=== PATIENT | female | born 1960 | race African-American/Black ===

== ENCOUNTER 2017-03-13 12:31 | Outpatient (CLI) | payer OTHER ==
--- NOTE | 2017-03-13 13:29 | RAD ---
RIGHT HIP TWO VIEWS: History: Right hip pain. FINDINGS: There are some mild arthritic changes of the hip joint without significant joint space narrowing. So me minimal acetabular spurring. There are no signs of fracture or other findings. IMPRESSION: Minimal arthritic changes of the hip. POS: OFF
== END 2017-03-13 12:32 | disposition home or self-care (01) ==
LOC: TBSIIMAG 12:31
PROVIDERS: ATTEND Neurological Surgery
DX: M25.551 Pain in right hip (principal); M16.11 Unilateral primary osteoarthritis, right hip

== ENCOUNTER 2017-08-13 12:21 | Outpatient (CLI) | payer OTHER | END 2017-08-13 12:22 | disposition home or self-care (01) | LOC: BICMRI 12:21 | PROVIDERS: ATTEND Orthopaedic Surgery | DX: M25.551 Pain in right hip (principal); M16.11 Unilateral primary osteoarthritis, right hip; M25.461 Effusion, right knee ==

== ENCOUNTER 2018-10-30 10:40 | Outpatient (CLI) | payer OTHER ==
[2018-10-30] MEDS ORDERED: Gadobenate Dimeglumine 529 MG/1 ML (20ML VIAL) ONE (10:51)
--- NOTE | 2018-10-30 13:56 | MRI ---
MRI OF LUMBAR SPINE WITH AND WITHOUT CONTRAST: 10/30/18 Multiplanar and multisequential imaging lumbar spine obtained. INDICATIONS: Lumbar radiculopathy. Low back pain. History of prior lumbar surgery. COMPARISON: Comparison made to lumbar MRI 11/22/14. That exam revealed disc extrusion centrally and to the right a t L5-S1 and disc protrusion centrally and to the left at L4-5. FINDINGS: Lumbar vertebrae maintain height and alignment. Loss of disc space at L5-S1. Mild disc bulge at L1-2 and L2-3. Posterior facet hypertrophy. However, no central canal or foraminal stenosis at these levels. At L3-4, mild diffuse disc bulge. Facet and ligamentous hypertrophy is prominent. These changes resul t in mild to moderate central canal stenosis. At L4-5, there continues to be a broad based bulge with asymmetric protrusion centrally and paracentr ally to the left. This compresses the thecal sac. There is prominent facet and ligamentous hypertrop hy. These changes result in severe central canal stenosis which has progressed when compared to prio r exam. At L5-S1, postop laminectomy changes are seen posteriorly on the left. Diffuse disc bulge. Recurrent or residual protrusion centrally and slightly to the left flattens the anterior thecal sac and displ aces the traversing left S1 nerve root. Left foraminal encroachment due to the diffuse disc bulging h ypertrophic change. Mild right foraminal narrowing due to disc osteophyte complex projecting into the foramina on both sides. IMPRESSION: 1. Mild to moderate central canal stenosis at L3-4. 2. Moderate to severe central canal stenosis at L4-5. 3. Mild to moderate central canal stenosis at L5-S1. See description of each level above. POS: JOSH
== END 2018-10-30 10:41 | disposition home or self-care (01) ==
LOC: BICMRI 10:40
PROVIDERS: ATTEND Neurological Surgery
DX: M54.5 Low back pain (principal); M54.16 Radiculopathy, lumbar region; M48.061 Spinal stenosis, lumbar region without neurogenic claudication; M48.062 Spinal stenosis, lumbar region with neurogenic claudication
CPT/HCPCS: 72158; 82565; A9577

== ENCOUNTER 2019-10-22 07:01 | Outpatient (CLI) | payer OTHER ==
[2019-10-22 13:31] LABS: Hemoglobin 15.4 g/dL (12.0-16.0); Mean Corpuscular HGB CONC 31.6 g/dL (32.0-36.0); Mean Corpuscular Hemoglobin 27.6 pg (27.0-31.0); Mean Corpuscular Volume 87.2 fL (78.0-98.0); Mean Platelet Volume 9.4 fL (7.4-10.4); Platelet Count 246 thou/uL (130-400); RBC Distribution Width 16.3 % (11.5-14.5); Red Blood Cell (RBC) Count 5.57 mill/uL (4.20-5.40); White Blood Cell (WBC) Count 8.5 thou/uL (4.8-10.8)
[2019-10-22 14:00] LABS: Anion Gap 15 mmol/L (10-20); BUN (Urea Nitrogen) 16 mg/dL (9.8-20.1); Calc. Creatinine Clearance 0 mL/min (70-130); Calcium 9.8 mg/dL (7.8-10.44); Carbon Dioxide 23 mmol/L (23-31); Chloride 104 mmol/L (98-107); Estimated GFR-MDRD 46; Glucose 117 mg/dL (80-115); Potassium 3.4 mmol/L (3.5-5.1); Sodium 139 mmol/L (136-145)
[2019-10-23 19:51] LABS: SARS-CoV-2 MS2 Positive; SARS-CoV-2 N Gene Negative; SARS-CoV-2 S Gene Negative; SARS-CoV-2 orf1ab Negative
--- NOTE | 2019-10-29 23:27 | EKG ---
Test Reason : Blood Pressure : / mmHG Vent. Rate : 082 BPM Atrial Rate : 082 BPM P-R Int : 144 ms QRS Dur : 120 ms QT Int : 434 ms P-R-T Axes : 068 026 -05 degrees QTc Int : 507 ms Normal sinus rhythm Possible Left atrial enlargement Left ventricular hypertrophy with QRS widening and repolarization abnormality Abnormal ECG When compared with ECG of 28-DEC-2014 08:16, No significant change was found Confirmed by Christopher FLYNN ([id number]) on 10/29/2019 11:27:23 PM Referred By: GLENDY Confirmed By:Christopher FLYNN
== END 2019-10-22 07:02 | disposition home or self-care (01) ==
LOC: LABBT 07:01
PROVIDERS: ATTEND Neurological Surgery
DX: Z01.818 Encounter for other preprocedural examination (principal); Z11.59 Encounter for screening for other viral diseases; M54.16 Radiculopathy, lumbar region
CPT/HCPCS: 80048; 85027; 87635; 93005; 93010; U0003

== ENCOUNTER 2019-10-27 05:42 | Day surgery (SDC) | payer OTHER ==
[2019-10-22 12:23] VITALS: BMI 28.5
--- NOTE | 2019-10-26 12:21 | HP ---
HISTORY OF PRESENT ILLNESS: Ms. Masterson is a very pleasant 59-year-old prior lumbar decompression with re-evaluation of her current pain as well as an MRI which confirmed spinal stenosis. We advocated for surgery in the Fall of 2018. However, the patient's insurance required her to see a surgeon at a [facility] which took her to [facility], where she was told she did not need surgery and will only benefit from physical therapy. She attempted physical therapy as well as epidural steroid injections repeatedly over the time interval from then until now and has continued to fail, and has ever increasing pain. MRI from [place] last summer does reveal severe central canal stenosis and lateral recess stenosis at L4-L5 as well as severe left lateral recess stenosis at L5-S1. Both of these are due to disk protrusion as well as facet hypertrophy. She continues to struggle greatly with both severe lumbar back pain and neurogenic claudication symptoms. PHYSICAL EXAMINATION: She is alert and oriented x3. Gait is severely antalgic, stooped and labored. Lower extremity motor exam is limited secondary to pain. She does have a positive bilateral straight leg raise. ASSESSMENT: Neurogenic claudication and lumbar spinal stenosis. PAST MEDICAL HISTORY: Significant for COPD, hyperlipidemia, hypertension. CURRENT MEDICATIONS: 1. Clonidine. 2. Spironolactone. 3. Amlodipine. 4. Losartan. 5. Hydralazine. 6. Estradiol. 7. Carvedilol. 8. Atorvastatin. 9. Albuterol. ALLERGIES: TO LESCOL, TOPROL, LISINOPRIL, PLAVIX. PAST SURGICAL HISTORY: Lumbar laminectomy, hysterectomy, cardiac stents. PLAN: Dr. Austin met with the patient, reviewed imaging, advocated for an L4-L5 decompression. He explained to the patient the risks, benefits, and alternatives of the procedure. The patient expressed understanding and elected to move forward with surgery as discussed. I do believe the patient is mentally competent and capable of making medical decisions for herself. We will move forward with surgery as planned. Job ID: [id number]
[2019-10-27] MEDS ORDERED: EPINEPHrine 1 MG/ML AMP ONE (06:12)
[2019-10-27] MEDS ORDERED: Bupivacaine PF 0.5% 30 ML VIAL ONE (06:12)
[2019-10-27] MEDS ORDERED: Thrombin 5000 UNITS/5 ML VIAL ONE (06:12)
[2019-10-27] MEDS ORDERED: Fentanyl 100 MCG/2 ML VIAL ONE (06:52)
[2019-10-27] MEDS ORDERED: SUGAMMADEX SODIUM 200 MG/2 ML VIAL ONE (08:05)
--- NOTE | 2019-10-27 08:13 | OP ---
DATE OF PROCEDURE: 10/27/2019 PLATE SETTER: Eduin Logan PA-C INDICATION: Pain. DIAGNOSIS: Lumbar stenosis. PROCEDURE PERFORMED: L4-L5 decompression. ANESTHESIA: General. DESCRIPTION OF PROCEDURE: The patient was brought into the operating room and placed under general anesthesia. She was flipped from the supine to prone position on the operating room table. A linear incision was planned over L4-L5. After prepping and draping and after an appropriate operative pause, the incision was created. The soft tissues were swept away from midline. Self-retaining retractors were placed. After confirming the appropriate level with C-arm fluoroscopy, the spinous process at the L4-L5 interface was removed. High-speed cutting drill bit as well as 2-, 3- and 4-mm Kerrisons were used to complete the laminectomy along the inferior aspect of L4 and the superior aspect of L5. The laminectomy was extended laterally to encompass the medial aspect of the facet joints until the central canal was well decompressed at the L4-L5 segment. The wound was irrigated. Hemostasis was maintained throughout. The wound was then closed in anatomic layers and a pressure dressing was applied. There were no known procedural complications. Job ID: [id number]
[2019-10-27] MEDS ORDERED: Morphine 4 MG/ML VIAL ONE (08:22)
[2019-10-27] MEDS ORDERED: Albuterol Sulfate 1.25 MG/3 ML NEB ONE (08:33)
[2019-10-27] MEDS ORDERED: Morphine 2 MG/ML SYRINGE ONE (08:45)
[2019-10-27] MEDS ORDERED: PROPOFOL 200 MG/20 ML VIAL ONE (12:59)
[2019-10-27] MEDS ORDERED: Ondansetron PF 4 MG/2 ML Vial ONE (12:59)
[2019-10-27] MEDS ORDERED: Glycopyrrolate 0.2 MG/ML 5 ML SYRINGE ONE (12:59)
[2019-10-27] MEDS ORDERED: Lidocaine 1% PF 5 ML VIAL ONE (12:59)
[2019-10-27] MEDS ORDERED: PHENYLEPHRINE-NS 100 MCG/ML 10 ML SYRINGE ONE (12:59)
[2019-10-27] MEDS ORDERED: Rocuronium Bromide 10 MG/ML (10ML VIAL) ONE (12:59)
[2019-10-27] MEDS ORDERED: EPHEDRINE 25 MG/5 ML SYRINGE ONE (12:59)
[2019-10-27] MEDS ORDERED: Dexamethasone 20 MG/5 ML VIAL ONE (12:59)
== END 2019-10-27 11:40 | disposition home or self-care (01) ==
LOC: SDC 05:42
PROVIDERS: ATTEND Neurological Surgery
PROC: 01NB0ZZ Release Lumbar Nerve, Open Approach (ICD-10-PCS; principal; 2019-10-27)
DX: M48.062 Spinal stenosis, lumbar region with neurogenic claudication (principal); M54.16 Radiculopathy, lumbar region; I10 Essential (primary) hypertension; E78.5 Hyperlipidemia, unspecified; J44.9 Chronic obstructive pulmonary disease, unspecified; Z79.899 Other long term (current) drug therapy
CPT/HCPCS: 76000; J0171; J0690; J1100; J2001; J2270; J2405; J2704; J3010; S0020